=== PATIENT | female | born 1995 ===

== ENCOUNTER 2017-10-26 19:22 | Emergency (ER) | payer BC ==
[2017-10-26 20:07] VITALS: BP 123/80
--- NOTE | 2017-10-26 21:25 | UC ---
Throat Pain/Nasal Lance HPI - HPI Summary HPI Summary: Patient is a 22-year-old female presenting to the with complaint of dysphagia and odynophagia x 1 day. She states she is currently moving into a new place and has been opening up boxes and being around a new environment. Denies any pain to the throat. Denies ear pain, BOWMAN, cough, congestion, fevers, sweats or chills. Dysphagsia and odynophagia have been intermittent with approximately 3-4 episodes on this date and have improved after ibuprofen. She is otherwise healthy and takes no medications. - History of Current Complaint Hx Obtained From: Patient Hx Last Menstrual Period: 10/15/17 ?: No Onset/Duration: Sudden Onset Severity: Moderate Pain Intensity: 0 Pain Scale Used: 0-10 Numeric - Epiglottits Risk Factors Epiglottis Risk Factors: Negative <Sasha Stallings - Last Filed: 10/26/17 21:20> <Desiree Vicente - Last Filed: 10/26/17 21:50> - History of Current Complaint Chief Complaint: UCRespiratory Stated Complaint: SORE THROAT Time Seen by Provider: 10/26/17 20:10 - Allergies/Home Medications Allergies/Adverse Reactions: Allergies Allergy/AdvReac Type Severity Reaction Status Date / Time No Known Allergies Allergy Verified 10/26/17 20:07 Home Medications: Home Medications Ibuprofen TAB* [Motrin TAB* 400 MG] 400 mg PO Q6HR PRN 10/26/17 [History Confirmed 10/26/17] Norgestimate-Ethinyl Estradiol [Mononessa 28 Tablet] 1 tab PO DAILY 10/26/17 [ History Confirmed 10/26/17] PMH/Surg Hx/FS Hx/Imm Hx Previously Healthy: Yes - Surgical History Surgical History: None - Social History Alcohol Use: None Substance Use Type: None Smoking Status (MU): Never Smoked Tobacco <Sasha Stallings - Last Filed: 10/26/17 21:20> Review of Systems Constitutional: Negative Skin: Negative ENT: Other - odynophagia and dysphagia - dissipated [employer] Respiratory: Negative Cardiovascular: Negative Motor: Negative Neurovascular: Negative Neurological: Negative Is Patient Immunocompromised?: No All Other Systems Reviewed And Are Negative: Yes <Sasha Stallings - Last Filed: 10/26/17 21:20> Physical Exam Triage Information Reviewed: Yes Appearance: Well-Appearing, Well-Nourished Vital Signs: Initial Vital Signs Temp 98.4 F 10/26/17 20:01 Pulse 79 10/26/17 20:01 Resp 16 10/26/17 20:01 BP 123/80 10/26/17 20:01 Pulse Ox 100 10/26/17 20:01 Vital Signs Reviewed: Yes Eye Exam: Normal Eyes: Positive: Conjunctiva Clear ENT: Positive: Pharynx normal, TMs normal, Uvula midline. Negative: Pharyngeal erythema, Nasal congestion, Tonsillar swelling, Tonsillar exudate, Hoarse voice Neck exam: Normal Neck: Positive: Supple, No Lymphadenopathy Respiratory Exam: Normal Respiratory: Positive: Chest non-tender Cardiovascular Exam: Normal Cardiovascular: Positive: RRR Musculoskeletal Exam: Normal Musculoskeletal: Positive: Strength Intact Neurological Exam: Normal Neurological: Positive: Alert Psychological: Positive: Normal Response To Family Skin Exam: Normal <Sasha Stallings - Last Filed: 10/26/17 21:20> Vital Signs: Initial Vital Signs Temp 98.4 F 10/26/17 20:01 Pulse 79 10/26/17 20:01 Resp 16 10/26/17 20:01 BP 123/80 10/26/17 20:01 Pulse Ox 100 10/26/17 20:01 <Desiree Vicente - Last Filed: 10/26/17 21:50> Throat Pain/Nasal Course/Dx - Course Course Of Treatment: During the course of treatment, the patient is evaluated for odynophagia and dysphagia. She denies any sore throat at this time. Denies any cough, congestion, fevers, sweats, chills, headache or ear pain. Strep swab obtained and is negative. Lungs CTA. RRR. No pharyngeal erythema and airway is patent. TMs normal, with cone of light. Patient is in no acute distress. I discussed with the patient this is likely allergy related and to take a short course of an allergy medication. She is OK with this plan and discharge. - Differential Dx/Diagnosis Provider Diagnoses: Allergies <Sasha Stallings - Last Filed: 10/26/17 21:20> Discharge - Sign-Out/Discharge Documenting (check all that apply): Discharge/Admit/Transfer - Billing Disposition and Condition Condition: STABLE Disposition: Home <Sasha Stallings - Last Filed: 10/26/17 21:20> - Billing Disposition and Condition Condition: STABLE Disposition: Home <Desiree Vicente - Last Filed: 10/26/17 21:50> - Discharge Plan Condition: Stable Disposition: HOME Patient Education Materials: Pharyngitis (ED), Allergies (ED) Referrals: No Primary Care Phys,NOPCP [Primary Care Provider] - Additional Instructions: As discussed, trying an over the counter allergy medication until you are settled could help with your symptoms Your symptoms seem consistent with an allergic reaction If you develop worsening symptoms of shortness of breath or throat closing, go to the ED Attestation Statement User Type: Provider - I was available for consult. This patient was seen by the [facility]. The patient was not presented to, seen by, or examined by me. -Airam <Desiree Vicente - Last Filed: 10/26/17 21:50>
== END 2017-10-26 21:10 | disposition home or self-care (01) ==
LOC: UCEAST 19:22
DX: R13.10 Dysphagia, unspecified (principal); T78.40XA Allergy, unspecified, initial encounter
CPT/HCPCS: 87651; 99201; G0463